=== PATIENT | male | born 1955 | race Caucasian/White ===

== ENCOUNTER 2020-06-14 12:34 | Outpatient (REF) | payer MEDICARE, MEDICAID, SELFPAY ==
--- NOTE | 2020-06-14 13:46 | XR_ITS ---
EXAMINATION: XR LUMBOSACRAL SPINE CLINICAL INFORMATION: Spondylosis without myelopathy or radiculopathy. COMPARISON: None TECHNIQUE: Three views of the lumbosacral spine. FINDINGS: There is maintained lumbar lordosis. The vertebral heights and alignment is normal. There is loss of disc height at all lumbar disc levels with mild ventral spondylosis. There is minimal levo scoliosis of upper dorsal lumbar junction. No acute fracture or lytic process seen. The SI joints are symmetrical and normal. 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 No visible acute fracture or dislocation seen. No lytic process.
== END 2020-06-14 12:35 | disposition home or self-care (01) ==
LOC: HO.XRAY 12:34
PROVIDERS: PCP Internal Medicine; Visit Provider Nurse Practitioner Family
DX: M47.816 Spondylosis without myelopathy or radiculopathy, lumbar region (principal)
CPT/HCPCS: 72100; 99202

== ENCOUNTER → 2021-07-13 13:34 | Outpatient (BNVA) | payer MEDICARE, MEDICAID, SELFPAY | PROVIDERS: PCP Internal Medicine; Referring Provider Internal Medicine; Visit Provider Surgery | DX: K64.9 Unspecified hemorrhoids (principal) | CPT/HCPCS: 46600; 99202 ==

== ENCOUNTER → 2021-10-12 13:05 | Outpatient (BNVA) | payer MEDICARE, MEDICAID, SELFPAY | PROVIDERS: PCP Internal Medicine; Visit Provider Surgery | DX: K64.9 Unspecified hemorrhoids (principal) | CPT/HCPCS: 99212 ==

== ENCOUNTER 2022-05-04 15:06 | Outpatient (REF) | payer MEDICARE, MEDICAID, SELFPAY | END 2022-05-04 15:07 | disposition home or self-care (01) | LOC: HO.SH 15:06 | PROVIDERS: Visit Provider Family Medicine | DX: H93.12 Tinnitus, left ear (principal); H90.A21 Sensorineural hearing loss, unilateral, right ear, with restricted hearing on the contralateral side; H90.A32 Mixed conductive and sensorineural hearing loss, unilateral, left ear with restricted hearing on the contralateral side | CPT/HCPCS: 92553; 92567 ==

== ENCOUNTER 2023-11-21 08:57 | Outpatient (REF) | payer MEDICARE, MEDICAID, SELFPAY ==
[2023-11-21 14:35] LABS: Alanine Aminotransferase 19 U/L (0-40); Albumin Level 4.5 g/dL (3.5-5.0); Alkaline Phosphatase 78 U/L (39-117); Anion Gap 13 (12-20); Aspartate Amino Transferase 27 U/L (5-37); Bilirubin Total 0.8 mg/dL (0.0-1.0); Blood Urea Nitrogen 8 mg/dL (9-16); Calcium 9.5 mg/dL (8.4-10.2); Carbon Dioxide 26 mmol/L (22-29); Chloride 104 mmol/L (96-108); Cholesterol 156 mg/dL (<200); Estimated Glomerular Filt Rate > 60; Glucose Random 105 mg/dL (60-115); HDL Cholesterol 58 mg/dL (>40); LDL Cholesterol Calculated 84 mg/dL (<100); Potassium 3.8 mmol/L (3.3-5.1); Sodium 139 mmol/L (135-145); Total Protein 8.2 g/dL (6.5-8.0); Triglycerides 73 mg/dL (<150)
== END 2023-11-21 08:58 | disposition home or self-care (01) ==
LOC: HO.CHCLDS 08:57
PROVIDERS: Visit Provider Internal Medicine
DX: Z12.5 Encounter for screening for malignant neoplasm of prostate (principal); I10 Essential (primary) hypertension; N40.0 Benign prostatic hyperplasia without lower urinary tract symptoms
CPT/HCPCS: 36415; 80053; 80061; 84153

== ENCOUNTER 2024-03-31 12:04 | Emergency (ER) | payer MEDICARE, MEDICAID, SELFPAY | END 2024-03-31 13:21 | disposition left against medical advice (07) | LOC: HO.ED 13:16 | PROVIDERS: Emergency Provider Emergency Medicine; PCP Internal Medicine | DX: R07.89 Other chest pain (principal) ==